=== PATIENT | female | born 1995 | race Hispanic/Latino ===

== ENCOUNTER 2020-04-28 10:27 | Emergency (ER) | payer BC ==
[~2020-04-28] VITALS: Ht 152.4 cm; Wt 79.4 kg
[2020-04-28 10:56] LABS: CLARITY,URINE CLEAR (CLEAR); COLOR,URINE YELLOW (YELLOW); LEUKOCYTE ESTERASE ,URINE SMALL (NEGATIVE)
[2020-04-28 10:57] LABS: KETONES,URINE NEGATIVE (NEGATIVE); NITRITE,URINE POSITIVE (NEGATIVE); PROTEIN,URINE DIPSTICK 2+ (NEGATIVE); URINE UROBILINOGEN 0.2 mg/dL (0.2 - 1)
[2020-04-28 11:07] LABS: BACTERIA,URINE RARE /HPF; EPITHELIAL CELLS,URINE FEW /LPF
[2020-04-28] MEDS ORDERED: KETOROLAC TROMETHAMINE 60 MG/2 ML VIAL IM NR (11:15)
[2020-04-28 11:22] LABS: PREGNANCY TEST, URINE NEGATIVE (NEGATIVE)
== END 2020-04-28 11:58 | disposition home or self-care (01) ==
LOC: ER 10:43
DX: R10.31 Right lower quadrant pain (principal); N39.0 Urinary tract infection, site not specified; M54.5 Low back pain; R11.0 Nausea
CPT/HCPCS: 81001; 81025; 87086; 87186; 99282; J1885

== ENCOUNTER 2021-05-03 19:26 | Emergency (ER) | payer BC ==
[~2021-05-03] VITALS: Ht 152.4 cm; Wt 81.6 kg
[2021-05-03] MEDS ORDERED: SODIUM CHLORIDE 0.9% 1000ML 1,000 ML IV ONE (19:45)
[2021-05-03] MEDS ORDERED: ACETAMINOPHEN 325 MG TAB PO ONE (19:45)
[2021-05-03 19:50] LABS: BASOPHILS % 0.3 % (0.0-1.0); HEMATOCRIT 39.6 % (34.2-44.1); HEMOGLOBIN 12.6 g/dL (12.0-16.0); LYMPHOCYTES # (AUTO) 0.5 (1.0-3.2); LYMPHOCYTES % 15.3 % (18.0-39.1); MEAN CORPUSCULAR HEMOGLOBIN 29.4 pg (28-32); MEAN CORPUSCULAR HGB CONC 31.8 g/dL (31-35); MEAN CORPUSCULAR VOLUME 92.3 fL (81-99); MONOCYTES # (AUTO) 0.3 (0.2-0.8); MONOCYTES % 9.4 % (4.4-11.3); NEUTROPHILS # (AUTO) 2.6 (2.1-6.9); NEUTROPHILS % 74.7 % (38.7-80.0); PLATELET COUNT 208 x10e3/uL (140-360); RED BLOOD COUNT 4.29 x10e6/uL (3.6-5.1); RED CELL DISTRIBUTION WIDTH 14.4 % (11.7-14.4)
[2021-05-03 20:05] LABS: BLOOD UREA NITROGEN 8 mg/dL (7-26); BUN/CREATININE RATIO 10 (6-25); CALCIUM 9.2 mg/dL (8.4-10.2); CARBON DIOXIDE 22 mmol/L (22-29); CHLORIDE 106 mmol/L (98-107); CREATINE KINASE 110 IU/L (29-168); CREATININE, SERUM 0.79 mg/dL (0.57-1.11); EST GLOMERULAR FILTRATION RATE 89 ML/MIN (60-); GLUCOSE 104 mg/dL (74-118); SODIUM 139 mmol/L (136-145)
[2021-05-03] MEDS ORDERED: POTASSIUM CHLORIDE 20 MEQ TAB CR PO STA (20:52)
[2021-05-03] MEDS ORDERED: POTASSIUM CHLORIDE 20 MEQ TAB CR PO ONE (21:40)
== END 2021-05-03 21:39 | disposition home or self-care (01) ==
LOC: ER 19:31
DX: U07.1 COVID-19 (principal); R55 Syncope and collapse; R50.9 Fever, unspecified; E87.6 Hypokalemia; R94.31 Abnormal electrocardiogram [ECG] [EKG]
CPT/HCPCS: 36415; 70450; 71045; 80048; 82550; 82553; 84484; 85025; 93005; 99284; J7030